=== PATIENT | female | born 1970 | race American Indian/Alaskan Native ===

== ENCOUNTER 2017-05-22 16:43 | Emergency (ER) | payer MEDICARE ==
--- NOTE | 2017-05-22 17:30 | Emergency Department Report ---
Chief Complaint: Skin/Abscess/Foreign Body Stated Complaint: TROUBLE SWALLOWING Time Seen by Provider: 05/22/17 17:29 - HPI History of Present Illness: Patient here reports that she is visiting from out of town and she has a history of pancreatic cancer and she is on oral chemotherapy. She is complaining not not to the right side of her neck 1 week. She says she has a hard time to swallow difficulty eating and drinking. When asked, positive drooling. Patient said pain to her throat is 7 out of 10 and achy worse with swallowing. She has a history of , Whipple procedure, herniated disks appear, small intestine repair. She also has a history of high blood pressure. Her blood pressure is 91/61 heart rate is 95 and O2 sat is stable and she is afebrile in triage area. Denies any cough, shortness of breath or chest pain. - ROS Review of Systems: All systems are negative unless stated in HPI above - Exam Vital Signs: Vital Signs 05/22/17 17:00 Temperature 98.2 F Pulse Rate 95 H Respiratory 18 Rate Blood Pressure 91/61 O2 Sat by Pulse 97 Oximetry Physical Exam: Gen.: This is a 46-year-old female well-nourished well-developed in no acute distress Neck: Supple, positive anterior to the right adenopathy. No tracheal deviation. Mouth: Moist, positive pharyngeal erythema, uvula is midline, tongue is normal. Questionable peritonsillar abscess, right side MSE screening note: Focused history and physical exam performed. Due to findings the following was ordered: ED Medical Decision Making - Medical Decision Making MDM: Patient screened by provider in triage area. Appropriate protocol initiated and patient to be seen in main ED by ED Disposition for MSE Condition: Stable
[2017-05-22 18:03] LABS: Basophils % (Auto) 0.7 % (0.0-1.8); Eosinophils % (Auto) 1.2 % (0.0-4.3); Hematocrit 34.1 % (30.3-42.9); Hemoglobin 11.4 gm/dl (10.1-14.3); Mean Corpuscular HGB Conc 34 % (30-34); Mean Corpuscular Hemoglobin 27 pg (28-32); Mean Corpuscular Volume 82 fl (79-97); Platelet Count 229 K/mm3 (140-440); Red Blood Count 4.19 M/mm3 (3.65-5.03); Red Cell Distribution Width 12.5 % (13.2-15.2); White Blood Count 6.6 K/mm3 (4.5-11.0)
[2017-05-22 18:22] LABS: Alanine Aminotransferase 29 units/L (7-56); Albumin 3.8 g/dL (3.9-5); Albumin/Globulin Ratio 1.3 %; Alkaline Phosphatase 157 units/L (35-129); Anion Gap 17 mmol/L; BUN/Creatinine Ratio 14; Bilirubin,Direct < 0.2 mg/dL (0-0.2); Bilirubin,Indirect 0.1 mg/dL; Blood Urea Nitrogen 14 mg/dL (7-17); Calcium 8.5 mg/dL (8.4-10.2); Carbon Dioxide 23 mmol/L (22-30); Chloride 101.9 mmol/L (98-107); Glucose 91 mg/dL (65-100); Potassium 3.6 mmol/L (3.6-5.0); Sodium 138 mmol/L (137-145); Total Protein 6.8 g/dL (6.3-8.2)
== END 2017-05-23 03:00 | disposition left against medical advice (07) ==
LOC: ED 16:43
DX: R13.10 Dysphagia, unspecified (principal); Z53.21 Procedure and treatment not carried out due to patient leaving prior to being seen by health care provider
CPT/HCPCS: 36415; 80048; 80074; 84703; 85025

== ENCOUNTER 2017-05-23 12:27 | Emergency (ER) | payer MEDICARE ==
[2017-05-23 13:08] VITALS: BP 118/78
[2017-05-23] MEDS ORDERED: MOTRIN PO ONE (14:27)
[2017-05-23] MEDS ORDERED: LIDOCAINE VISCOUS 2% PO ONE (14:27)
--- NOTE | 2017-05-23 14:33 | Emergency Department Report ---
ED ENT HPI - General Chief complaint: Sore Throat Stated complaint: SORE THROAT Time Seen by Provider: 05/23/17 13:48 Source: patient Mode of arrival: Ambulatory Limitations: No Limitations - History of Present Illness Initial comments: This is a 46-year-old female nontoxic, well nourished in appearance, no acute signs of distress presents to the ED with c/o of sore throat x1 week. Patient describes sore throat as swallowing razer blades sensations. Patient also stated has right sided lymp node swelling in the tonsilar region. Patient denies any drooling, hoarseness, fever, chills, headache, nausea, vomiting, chest pain, shortness of breathe, numbness or tingling. Denies stiff neck. Denies difficulty breathing. Patient states pain level of 8/10. Patient stated allergies to Reglan, Zofran, and Phenergan. PMH includes HTN and pancreatic ca. MD complaint: sore throat -: week(s) (1) Location: throat Severity: mild Severity scale (0 -10): 8 Quality: aching Consistency: constant Improves with: none Worsens with: swallowing Associated Symptoms: pain with swallowing, sore throat. denies: fever, cough, gum swelling, toothache, tinnitus, hearing loss, discharge from ear, rhinorrhea - Related Data Previous Rx's Medication Instructions Recorded Last Taken Type Amoxicillin/K Clav Tab [Augmentin 1 tab PO Q12HR #20 tab 05/23/17 Unknown Rx 875 mg] Nystas/Diphen/Xyl Visc/Mylanta 15 ml MM Q8H 10 Days 05/23/17 Unknown Rx [Magic Mouthwash] Allergies Allergy/AdvReac Type Severity Reaction Status Date / Time metoclopramide [From Reglan] Allergy Anaphylaxis Verified 05/23/17 13:08 ondansetron Allergy Anaphylaxis Verified 05/23/17 13:08 [From Zofran (as hydrochloride)] promethazine [From Phenergan] Allergy Anaphylaxis Verified 05/23/17 13:08 ED Dental HPI - General Chief complaint: Sore Throat Stated complaint: SORE THROAT Time Seen by Provider: 05/23/17 13:48 Source: patient Mode of arrival: Ambulatory Limitations: No Limitations - Related Data Previous Rx's Medication Instructions Recorded Last Taken Type Amoxicillin/K Clav Tab [Augmentin 1 tab PO Q12HR #20 tab 05/23/17 Unknown Rx 875 mg] Nystas/Diphen/Xyl Visc/Mylanta 15 ml MM Q8H 10 Days 05/23/17 Unknown Rx [Magic Mouthwash] Allergies Allergy/AdvReac Type Severity Reaction Status Date / Time metoclopramide [From Reglan] Allergy Anaphylaxis Verified 05/23/17 13:08 ondansetron Allergy Anaphylaxis Verified 05/23/17 13:08 [From Zofran (as hydrochloride)] promethazine [From Phenergan] Allergy Anaphylaxis Verified 05/23/17 13:08 ED Review of Systems ROS: Stated complaint: SORE THROAT Other details as noted in HPI Constitutional: denies: chills, fever Eyes: denies: eye pain, eye discharge, vision change ENT: throat pain. denies: ear pain Respiratory: denies: cough, shortness of breath, wheezing Cardiovascular: denies: chest pain, palpitations Endocrine: no symptoms reported Gastrointestinal: denies: abdominal pain, nausea, diarrhea Genitourinary: denies: urgency, dysuria, discharge Musculoskeletal: denies: back pain, joint swelling, arthralgia Skin: denies: rash, lesions Neurological: denies: headache, weakness, paresthesias Psychiatric: denies: anxiety, depression Hematological/Lymphatic: denies: easy bleeding, easy bruising ED Past Medical Hx - Past Medical History Hx Hypertension: Yes Hx of Cancer: Yes (pancreatic) - Surgical History Past Surgical History?: Yes Additional Surgical History: , whipple, herniated disc repair, small intestine repair - Social History Smoking Status: Never Smoker Substance Use Type: None - Medications Home Medications: Home Medications Medication Instructions Recorded Confirmed Last Taken Type Amoxicillin/K Clav Tab [Augmentin 1 tab PO Q12HR #20 tab 05/23/17 Unknown Rx 875 mg] Nystas/Diphen/Xyl Visc/Mylanta 15 ml MM Q8H 10 Days 05/23/17 Unknown Rx [Magic Mouthwash] ED Physical Exam - General Limitations: No Limitations General appearance: alert, in no apparent distress - Head Head exam: Present: atraumatic, normocephalic, normal inspection - Eye Eye exam: Present: normal appearance, PERRL, EOMI. Absent: scleral icterus, conjunctival injection, nystagmus, periorbital swelling, periorbital tenderness Pupils: Present: normal accommodation - ENT ENT exam: Present: mucous membranes moist, TM's normal bilaterally, normal external ear exam - Expanded ENT Exam Expanded Ear exam: Present: normal external inspection Mouth exam: Present: normal external inspection, tongue normal. Absent: drooling, trismus, muffled voice, tongue elevation, laceration Teeth exam: Present: normal inspection Throat exam: Positive: tonsillar erythema, tonsillomegaly (2+), tonsillar exudate, other (Uvula midline. No abscess or swelling noted. ). Negative: R peritonsillar mass, L peritonsillar mass - Neck Neck exam: Present: normal inspection, full ROM, lymphadenopathy (right tonsilar ). Absent: tenderness, meningismus, thyromegaly - Respiratory Respiratory exam: Present: normal lung sounds bilaterally. Absent: respiratory distress, wheezes, rales, rhonchi, stridor, chest wall tenderness, accessory muscle use, decreased breath sounds, prolonged expiratory - Cardiovascular Cardiovascular Exam: Present: regular rate, normal rhythm, normal heart sounds. Absent: bradycardia, tachycardia, irregular rhythm, systolic murmur, diastolic murmur, rubs, gallop - GI/Abdominal GI/Abdominal exam: Present: soft, normal bowel sounds. Absent: distended, tenderness, guarding, rebound, rigid, diminished bowel sounds - Rectal Rectal exam: Present: deferred - Extremities Exam Extremities exam: Present: normal inspection, full ROM, normal capillary refill. Absent: tenderness, pedal edema, joint swelling, calf tenderness - Back Exam Back exam: Present: normal inspection, full ROM. Absent: tenderness, CVA tenderness (R), CVA tenderness (L), muscle spasm, paraspinal tenderness, vertebral tenderness, rash noted - Neurological Exam Neurological exam: Present: alert, oriented X3, CN II-XII intact, normal gait, reflexes normal - Psychiatric Psychiatric exam: Present: normal affect, normal mood - Skin Skin exam: Present: warm, dry, intact, normal color. Absent: rash ED Course Vital Signs 05/23/17 13:04 Temperature 98.2 F Pulse Rate 84 Respiratory 16 Rate Blood Pressure 118/78 O2 Sat by Pulse 100 Oximetry - Reevaluation(s) Reevaluation #1: 05/23/17 14:41 Patient is speaking in full sentences with no signs of distress noted. ED Medical Decision Making - Medical Decision Making This is a 46-year-old female that presents with right tonsilar lymphadenopathy and tonsillitis with exudate. Patient is stable and was examined by me. CT scan with contrast of the neck has been obtained and read by radiologist tonsillar abscess. Impression; normal examination. Patient was notified of the CT results. No further questions noted by the patient. Patient received viscous lidocaine in the ED with persistent symptoms of sore throat is improving and are subsided. Patient was treated with Augmentin at discharge with Magic mouthwash for strep throat. Patient was instructed follow-up with a primary care doctor in 3-5 days or if symptoms worsen and continue return to emergency room as soon as possible. At time time of discharge, the patient does not seem toxic or ill in appearance. No acute signs of distress noted. Patient agrees to discharge treatment plan of care. No further questions noted by the patient. Critical care attestation.: If time is entered above; I have spent that time in minutes in the direct care of this critically ill patient, excluding procedure time. ED Disposition Clinical Impression: Tonsillitis with exudate Disposition: DC-01 TO HOME OR SELFCARE Is pt being admited?: No Does the pt Need Aspirin: No Condition: Stable Instructions: Tonsillitis (ED), Amoxicillin/Clavulanate Potassium (By mouth) Additional Instructions: Follow-up with a primary care doctor in 3-5 days or if symptoms worsen and continue return to emergency room as soon as possible. Prescriptions: Amoxicillin/K Clav Tab [Augmentin 875 mg] 1 tab PO Q12HR #20 tab Nystas/Diphen/Xyl Visc/Mylanta [Magic Mouthwash] 15 ml MM Q8H 10 Days Referrals: NOA KELLEY MD [Primary Care Provider] - 3-5 Days EVERTON KIM MD [Staff Physician] - 3-5 Days [facility] [Outside] - 3-5 Days [facility] [Outside] - 3-5 Days Forms: Work/School Release Form(ED)
[2017-05-23 15:16] LABS: Anion Gap 18 mmol/L; BUN/Creatinine Ratio 15; Blood Urea Nitrogen 12 mg/dL (7-17); Calcium 8.4 mg/dL (8.4-10.2); Carbon Dioxide 23 mmol/L (22-30); Chloride 103.6 mmol/L (98-107); Glucose 77 mg/dL (65-100); Potassium 4.2 mmol/L (3.6-5.0); Sodium 140 mmol/L (137-145)
[2017-05-23 15:25] LABS: Basophils % (Auto) 0.8 % (0.0-1.8); Hemoglobin 11.6 gm/dl (10.1-14.3); Mean Corpuscular HGB Conc 33 % (30-34); Mean Corpuscular Hemoglobin 26 pg (28-32); Mean Corpuscular Volume 80 fl (79-97); Platelet Count 211 K/mm3 (140-440); Red Blood Count 4.39 M/mm3 (3.65-5.03); Red Cell Distribution Width 12.3 % (13.2-15.2); White Blood Count 6.2 K/mm3 (4.5-11.0)
--- NOTE | 2017-05-23 17:58 | Cat Scan Report ---
FINAL REPORT PROCEDURE: CT neck with contrast. TECHNIQUE: Computerized axial tomography of the soft tissue neck was performed following the IV injection of iodinated nonionic contrast. HISTORY: Tonsillitis with lymphadenopathy r/o tonsilar abscess. COMPARISON: No prior studies are available for comparison. FINDINGS: The nasopharynx, oropharynx and hypopharynx appear normal. The larynx appears normal. There is a small nodule in the lower pole of the right lobe of the thyroid. The parotid and submandibular salivary glands appear normal. There are no peritonsillar abscesses. There are small nonspecific cervical lymph nodes. There is no bulky adenopathy. The vascular structures enhance normally. The bones appear intact. There is an anterior fusion from C5 through C7. C4 is also fused to C5 without internal fixation. The mastoid air cells and paranasal sinuses are clear as far as visualized. IMPRESSION: No significant abnormality identified.
== END 2017-05-23 18:21 | disposition home or self-care (01) ==
LOC: ED 12:27
DX: J03.90 Acute tonsillitis, unspecified (principal); C25.9 Malignant neoplasm of pancreas, unspecified; Z88.8 Allergy status to other drugs, medicaments and biological substances
CPT/HCPCS: 36415; 70491; 80048; 85025; 99284; Q9967